=== PATIENT | male | born 1945 | race Hispanic/Latino ===

== ENCOUNTER 2020-03-12 05:12 | Emergency (ER) | payer MEDICARE ==
--- NOTE | 2020-03-12 05:14 | Emergency Department Report ---
HPI <NATY AVILA - Last Filed: 03/12/20 07:06> - HPI HPI: This is a 75-year-old male who presents to the emergency department via EMS from home with complaint of slurred speech, left-sided facial droop, and left-sided weakness that the patient noticed upon waking at about 4 AM this morning. The patient woke up and found himself to be incontinent of urine. He went to sleep around 10:30 PM last night. He has a past medical history of hypertension and hyperlipidemia and presents with elevated blood pressure with a systolic of about 200, per EMS. The patient is very hard of hearing. He has a surgical history of some small bowel resection from what sounds like an SBO. The patient did not take anything or receive anything for his symptoms prior to presentation today. He denies any tobacco or illicit drug use. <LINO ABRAMS - Last Filed: 03/14/20 06:08> - General Time Seen by Provider: 03/12/20 05:12 ED Review of Systems ROS: Stated complaint: CODE STROKE Other details as noted in HPI <NATY AVILA - Last Filed: 03/12/20 07:06> ROS: Stated complaint: CODE STROKE Other details as noted in HPI Comment: All other systems reviewed and negative Constitutional: denies: chills, fever Eyes: denies: eye pain, vision change ENT: denies: ear pain, throat pain Respiratory: denies: cough, shortness of breath Cardiovascular: denies: chest pain, palpitations Gastrointestinal: denies: abdominal pain, vomiting Genitourinary: denies: dysuria, discharge Musculoskeletal: denies: back pain, arthralgia Skin: denies: rash, lesions Neurological: weakness <LINO ABRAMS - Last Filed: 03/14/20 06:08> Physical Exam - Physical Exam Vital Signs: Vital Signs 03/12/20 03/12/20 05:12 06:09 Pulse Rate 89 Respiratory 21 17 Rate Blood Pressure 166/78 [Right] O2 Sat by Pulse 98 98 Oximetry <NATY AVILA - Last Filed: 03/12/20 07:06> - Physical Exam Physical Exam: GENERAL: Patient is ill-appearing. HENT: Normocephalic. Atraumatic. Patient has moist mucous membranes. EYES: There is a mild right-sided gaze preference. Pupils equal reactive to light bilaterally. NECK: Supple. Trachea is midline. CHEST/LUNGS: Clear to auscultation. There is no respiratory distress noted. HEART/CARDIOVASCULAR: Regular. There is no tachycardia. There is no murmur. ABDOMEN: Abdomen is soft, nontender. Patient has normal bowel sounds. There is no abdominal distention. SKIN: Skin is warm and dry. NEURO: The patient is awake, alert, and oriented. The patient is cooperative. Mild left-sided nasolabial fold paresis. There is left-sided hemiparesis. Normal speech. MUSCULOSKELETAL: There is no tenderness or deformity. <LINO ABRAMS - Last Filed: 03/14/20 06:08> ED Course Vital Signs 03/12/20 03/12/20 05:12 06:09 Pulse Rate 89 Respiratory 21 17 Rate Blood Pressure 166/78 [Right] O2 Sat by Pulse 98 98 Oximetry - Reevaluation(s) Reevaluation #1: 03/12/20 06:[address] Abrams. Spoke with teleneurologist who states patient appears to have large vessel occlusion on CTA. He reports that he has contacted [place] transfer line to speak with their interventional neurologist. We also gave him the number for the [place] stroke pager. Reevaluation #2: 03/12/20 06:[address] Morse, interventionalist at [facility]. Will be excepting the patient. Prefers patient be flown to [place]. Working on transport at this time. Reevaluation #3: 03/12/20 07:06 Helicopter unable to fly until 9 AM. Ground transport en route. <NATY AVILA - Last Filed: 03/12/20 07:06> - Consultations Consultation #1: 03/12/20 05:46 The patient was seen by the telemedicine neurologist, Dr. Maharaj, who agrees that the patient does not appear to be a TPA candidate as he woke up with the symptoms, but it is concerning for a large vessel occlusion. CT angiography of the head and neck has been ordered and is being performed now. <LINO ABRAMS - Last Filed: 03/14/20 06:08> ED Medical Decision Making - Lab Data Result diagrams: 03/12/20 05:55 03/12/20 05:55 <NATY AVILA. - Last Filed: 03/12/20 07:06> - Lab Data Result diagrams: 03/12/20 05:55 03/12/20 05:55 Lab Results 03/12/20 03/12/20 03/12/20 Range/Units 05:55 05:55 05:55 WBC 5.9 (4.5-11.0) K/mm3 RBC 4.64 (3.65-5.03) M/mm3 Hgb 12.8 (11.8-15.2) gm/dl Hct 39.0 (35.5-45.6) % MCV 84 (84-94) fl MCH 28 (28-32) pg MCHC 33 (32-34) % RDW 14.9 (13.2-15.2) % Plt Count 172 (140-440) K/mm3 Lymph % (Auto) 22.9 (13.4-35.0) % [place] % (Auto) 5.6 (0.0-7.3) % Eos % (Auto) 1.7 (0.0-4.3) % Baso % (Auto) 0.5 (0.0-1.8) % Lymph # (Auto) 1.4 (1.2-5.4) K/mm3 [place] # (Auto) 0.3 (0.0-0.8) K/mm3 Eos # (Auto) 0.1 (0.0-0.4) K/mm3 Baso # (Auto) 0.0 (0.0-0.1) K/mm3 Seg Neutrophils % 69.3 (40.0-70.0) % Seg Neutrophils # 4.1 (1.8-7.7) K/mm3 PT 13.7 (12.2-14.9) Sec. INR 1.06 (0.87-1.13) APTT 29.7 (24.2-36.6) Sec. Thrombin Time 18.7 (15.1-19.6) Sec. Sodium 138 (137-145) mmol/L Potassium 4.3 (3.6-5.0) mmol/L Chloride 106.4 (98-107) mmol/L Carbon Dioxide 24 (22-30) mmol/L Anion Gap 12 mmol/L BUN 17 (9-20) mg/dL Creatinine 1.1 (0.8-1.3) mg/dL Estimated GFR > 60 ml/min BUN/Creatinine Ratio 15 % Glucose 141 H (75-100) mg/dL POC Glucose (70-105) mg/dL Calcium 8.1 L (8.4-10.2) mg/dL Total Bilirubin 0.30 (0.1-1.2) mg/dL AST 14 (5-40) units/L ALT 9 (7-56) units/L Alkaline Phosphatase 74 (35-129) units/L Total Creatine Kinase 85 (55-170) units/L CK-MB (CK-2) 2.7 (0.0-4.0) ng/mL CK-MB (CK-2) Rel Index 3.1 (0-4) Troponin T < 0.010 (0.00-0.029) ng/mL Total Protein 5.4 L (6.3-8.2) g/dL Albumin 3.3 L (3.9-5) g/dL Albumin/Globulin Ratio 1.6 % Urine Color (Yellow) Urine Turbidity (Clear) Urine pH (5.0-7.0) Ur Specific [place] (1.003-1.030) Urine Protein (Negative) mg/dL Urine Glucose (UA) (Negative) mg/dL Urine Ketones (Negative) mg/dL Urine Blood (Negative) Urine Nitrite (Negative) Urine Bilirubin (Negative) Urine Urobilinogen (<2.0) mg/dL Ur Leukocyte Esterase (Negative) Urine WBC (Auto) (0.0-6.0) /HPF Urine RBC (Auto) (0.0-6.0) /HPF Urine Opiates Screen Urine Methadone Screen Ur Barbiturates Screen Ur Phencyclidine Scrn Ur Amphetamines Screen U Benzodiazepines Scrn Urine Cocaine Screen U Marijuana (THC) Screen Drugs of Abuse Note Plasma/Serum Alcohol (0-0.07) % 03/12/20 03/12/20 03/12/20 Range/Units 05:55 06:32 06:52 WBC (4.5-11.0) K/mm3 RBC (3.65-5.03) M/mm3 Hgb (11.8-15.2) gm/dl Hct (35.5-45.6) % MCV (84-94) fl MCH (28-32) pg MCHC (32-34) % RDW (13.2-15.2) % Plt Count (140-440) K/mm3 Lymph % (Auto) (13.4-35.0) % [place] % (Auto) (0.0-7.3) % Eos % (Auto) (0.0-4.3) % Baso % (Auto) (0.0-1.8) % Lymph # (Auto) (1.2-5.4) K/mm3 [place] # (Auto) (0.0-0.8) K/mm3 Eos # (Auto) (0.0-0.4) K/mm3 Baso # (Auto) (0.0-0.1) K/mm3 Seg Neutrophils % (40.0-70.0) % Seg Neutrophils # (1.8-7.7) K/mm3 PT (12.2-14.9) Sec. INR (0.87-1.13) APTT (24.2-36.6) Sec. Thrombin Time (15.1-19.6) Sec. Sodium (137-145) mmol/L Potassium (3.6-5.0) mmol/L Chloride (98-107) mmol/L Carbon Dioxide (22-30) mmol/L Anion Gap mmol/L BUN (9-20) mg/dL Creatinine (0.8-1.3) mg/dL Estimated GFR ml/min BUN/Creatinine Ratio % Glucose (75-100) mg/dL POC Glucose 115 H (70-105) mg/dL Calcium (8.4-10.2) mg/dL Total Bilirubin (0.1-1.2) mg/dL AST (5-40) units/L ALT (7-56) units/L Alkaline Phosphatase (35-129) units/L Total Creatine Kinase (55-170) units/L CK-MB (CK-2) (0.0-4.0) ng/mL CK-MB (CK-2) Rel Index (0-4) Troponin T (0.00-0.029) ng/mL Total Protein (6.3-8.2) g/dL Albumin (3.9-5) g/dL Albumin/Globulin Ratio % Urine Color Straw (Yellow) Urine Turbidity Clear (Clear) Urine pH 7.0 (5.0-7.0) Ur Specific [place] 1.033 H (1.003-1.030) Urine Protein <15 mg/dl (Negative) mg/dL Urine Glucose (UA) Neg (Negative) mg/dL Urine Ketones Neg (Negative) mg/dL Urine Blood Neg (Negative) Urine Nitrite Neg (Negative) Urine Bilirubin Neg (Negative) Urine Urobilinogen < 2.0 (<2.0) mg/dL Ur Leukocyte Esterase Neg (Negative) Urine WBC (Auto) < 1.0 (0.0-6.0) /HPF Urine RBC (Auto) 1.0 (0.0-6.0) /HPF Urine Opiates Screen Urine Methadone Screen Ur Barbiturates Screen Ur Phencyclidine Scrn Ur Amphetamines Screen U Benzodiazepines Scrn Urine Cocaine Screen U Marijuana (THC) Screen Drugs of Abuse Note Plasma/Serum Alcohol < 0.01 (0-0.07) % 03/12/20 Range/Units 06:52 WBC (4.5-11.0) K/mm3 RBC (3.65-5.03) M/mm3 Hgb (11.8-15.2) gm/dl Hct (35.5-45.6) % MCV (84-94) fl MCH (28-32) pg MCHC (32-34) % RDW (13.2-15.2) % Plt Count (140-440) K/mm3 Lymph % (Auto) (13.4-35.0) % [place] % (Auto) (0.0-7.3) % Eos % (Auto) (0.0-4.3) % Baso % (Auto) (0.0-1.8) % Lymph # (Auto) (1.2-5.4) K/mm3 [place] # (Auto) (0.0-0.8) K/mm3 Eos # (Auto) (0.0-0.4) K/mm3 Baso # (Auto) (0.0-0.1) K/mm3 Seg Neutrophils % (40.0-70.0) % Seg Neutrophils # (1.8-7.7) K/mm3 PT (12.2-14.9) Sec. INR (0.87-1.13) APTT (24.2-36.6) Sec. Thrombin Time (15.1-19.6) Sec. Sodium (137-145) mmol/L Potassium (3.6-5.0) mmol/L Chloride (98-107) mmol/L Carbon Dioxide (22-30) mmol/L Anion Gap mmol/L BUN (9-20) mg/dL Creatinine (0.8-1.3) mg/dL Estimated GFR ml/min BUN/Creatinine Ratio % Glucose (75-100) mg/dL POC Glucose (70-105) mg/dL Calcium (8.4-10.2) mg/dL Total Bilirubin (0.1-1.2) mg/dL AST (5-40) units/L ALT (7-56) units/L Alkaline Phosphatase (35-129) units/L Total Creatine Kinase (55-170) units/L CK-MB (CK-2) (0.0-4.0) ng/mL CK-MB (CK-2) Rel Index (0-4) Troponin T (0.00-0.029) ng/mL Total Protein (6.3-8.2) g/dL Albumin (3.9-5) g/dL Albumin/Globulin Ratio % Urine Color (Yellow) Urine Turbidity (Clear) Urine pH (5.0-7.0) Ur Specific [place] (1.003-1.030) Urine Protein (Negative) mg/dL Urine Glucose (UA) (Negative) mg/dL Urine Ketones (Negative) mg/dL Urine Blood (Negative) Urine Nitrite (Negative) Urine Bilirubin (Negative) Urine Urobilinogen (<2.0) mg/dL Ur Leukocyte Esterase (Negative) Urine WBC (Auto) (0.0-6.0) /HPF Urine RBC (Auto) (0.0-6.0) /HPF Urine Opiates Screen Presumptive negative Urine Methadone Screen Presumptive negative Ur Barbiturates Screen Presumptive negative Ur Phencyclidine Scrn Presumptive negative Ur Amphetamines Screen Presumptive negative U Benzodiazepines Scrn Presumptive negative Urine Cocaine Screen Presumptive negative U Marijuana (THC) Screen Presumptive negative Drugs of Abuse Note Disclamer Plasma/Serum Alcohol (0-0.07) % - EKG Data -: EKG Interpreted by Pa EKG shows normal: sinus rhythm, axis, intervals, QRS complexes, ST-T waves Rate: normal - EKG Data When compared to previous EKG there are: previous EKG unavailable Interpretation: normal EKG - Radiology Data Radiology results: report reviewed CT angio neck INDICATION / CLINICAL INFORMATION: 75 years Male; Post Code Stroke Protocol, possible C.V.A.. TECHNIQUE: Thin cut axial images obtained through the head during IV bolus contrast administration. Sagittal, coronal, and 3 plane MIP reconstructions performed by the technologist. NASCET type criteria used evaluate stenoses. All CT scans at this location are performed using CT dose reduction for ALARA by means of automated exposure control. COMPARISON: None available. FINDINGS: CAROTID ARTERIES: There is occlusion of the right cervical carotid artery at the origin. There is no significant stenosis of the right common carotid artery. There is atherosclerotic plaque involving proximal left ICA with approximately 50% stenosis just distal to the left carotid bulb. There is no further significant narrowing involving the more distal left ICA or left common carotid artery. VERTEBRAL ARTERIES: There is mild narrowing of the origin of the right vertebral artery with mild poststenotic dilatation. The proximal left vertebral artery is obscured by the beam hardening artifact. However, there appears be mild to moderate to narrowing of the origin. Otherwise, the cervical vertebral arteries are unremarkable. ARCH: There is mild atherosclerotic calcification involving aortic arch. However, there is no significant stenosis of the arch vessels. ADDITIONAL FINDINGS: Remainder of the surrounding soft tissues are grossly normal. 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 There is atherosclerotic plaque involving the proximal left ICA with 50% stenosis just distal to the left carotid bulb. There is mild to moderate narrowing of the origins of the vertebral arteries bilaterally. CT angio head INDICATION / CLINICAL INFORMATION: 75 years Male; Post Code Stroke Protocol, possible C.V.A.. TECHNIQUE: Thin cut axial images obtained through the head during IV bolus contrast administration. Sagittal, coronal, and 3 plane MIP reconstructions performed by the technologist. NASCET type criteria used evaluate stenoses. Automated exposure control utilized for radiation reduction purposes. COMPARISON: None available. FINDINGS: INTERNAL CAROTID ARTERIES: On the CTA neck, there was note of occlusion of the right ICA at the origin. Faint contrast is seen within the intracranial segments of the right ICA compatible with component of collateral or possibly retrograde flow. There is no significant stenosis involving left ICA by NASCET criteria. VERTEBROBASILAR SYSTEM: No significant narrowing appreciated. CEREBRAL ARTERIES: The findings are compatible with thrombus within the M1 segment of the right MCA approximately 7 mm from the origin with occlusion. However, there is collateral flow noted within the more distal insular branches though the flow is decreased compared to the left at. Otherwise, the cerebral branches appear to demonstrate appropriate caliber. ANEURYSM: None identified. ADDITIONAL FINDINGS: The dural venous sinuses opacify with contrast. IMPRESSION: There is occlusion of the M1 segment of the right MCA with some collateral flow within the insular branches as detailed above. In correlation with the CTA neck, there is note of occlusion of the right ICA at the origin with some collateral flow within the intracranial segments as described. - Medical Decision Making Patient presents as a code stroke. He appears to have left-sided hemiparesis, a mild right-sided gaze preference, and a mild left-sided facial droop. CT scan of the head without contrast does not show any hemorrhage or large vessel occlusion. He was seen by telemedicine neurology who has ordered a CT angiography of the head and neck that has been performed but has not yet resulted. EKG did not show any morphology consistent with ST elevation myocardial infarction or any dysrhythmia. Initial vital signs in the emergency department have been reassuring including being afebrile. The patient has been signed out to my colleague, Dr Avila, to follow the CT angiography results and the lab results, and assist with disposition. <LINO ABRAMS - Last Filed: 03/14/20 06:08> Critical care attestation.: If time is entered above; I have spent that time in minutes in the direct care of this critically ill patient, excluding procedure time. <NATY AVILA - Last Filed: 03/12/20 07:06> Critical Care Time: Yes Critical care time in (mins) excluding proc time.: 35 Critical care attestation.: If time is entered above; I have spent that time in minutes in the direct care of this critically ill patient, excluding procedure time. Critical care time was spent on this patient in doing his initial evaluation, multiple reevaluations, ordering and interpretation of labs and imaging, discussion with the telemedicine neurologist. Critical Care Time: 35 minutes <LINO ABRAMS - Last Filed: 03/14/20 06:08> ED Disposition Is pt being admited?: No Time of Disposition: 06:56 <NATY AVILA - Last Filed: 03/12/20 07:06> Is pt being admited?: No <SHEAR,LINO S - Last Filed: 03/14/20 06:08> Clinical Impression: CVA (cerebral vascular accident) Qualifiers: CVA mechanism: occlusion Precerebral and cerebral artery: middle cerebral art anita Laterality of affected vessel: right Qualified Code(s): I63.511 - Cerebral infarction due to unspecified occlusion or stenosis of right middle cerebral artery Hypertension Qualifiers: Hypertension type: essential hypertension Qualified Code(s): I10 - Essential (primary) hypertension Disposition: DC/TX-70 ANOTHER TYPE HLTHCARE Condition: Serious Instructions: Hypertension (ED)
--- NOTE | 2020-03-12 05:58 | Cat Scan Report ---
CT head/brain wo con INDICATION / CLINICAL INFORMATION: CODE STROKE PROTOCOL!!! Stroke-Like symptoms. Left hemiparesis TECHNIQUE: Axial CT imaging of the brain was obtained without contrast. Coronal and sagittal reformatted imaging obtained and reviewed. All CT scans at this location are performed using CT dose reduction for ALAR A by means of automated exposure control. COMPARISON: None available. FINDINGS: No intracranial hemorrhage, mass, or midline shift is noted. No extra-axial fluid collection or sugge stion for acute territorial infarction. There is small old appearing stroke in the right posterior pa rietal lobe. No definite signs of acute ischemia are identified. Campbell-white differentiation is mainta ined. No cerebral sulci effacement. Ventricular system and basilar cisterns appear unremarkable. Mild age-appropriate atrophy is noted. Visualized paranasal sinuses and mastoid air cells are well aerated and clear. No calvarial abnormali ty. IMPRESSION: 1. No definite acute area of ischemia to account for patient's significant neurological deficit of le ft hemiparesis. 2. Small area of encephalomalacia in the right posterior parietal lobe. The appearance is most sugges tive for old CVA. This is a code stroke protocol. The above report was telephoned to Dr. Abrams at 0446 hours [facility]ICAL RE[facility]ABILITATION LIAISON. Signer Name: Zakiya Garcia MD Signed: 03/12/2020 5:53 AM Workstation Name: [id number]
[2020-03-12] MEDS ORDERED: ASPIRIN 81 MG TAB CHEW PO ONE (06:05)
[2020-03-12 06:25] LABS: Basophils % (Auto) 0.5 % (0.0-1.8); Eosinophils # (Auto) 0.1 K/mm3 (0.0-0.4); Eosinophils % (Auto) 1.7 % (0.0-4.3); Hemoglobin 12.8 gm/dl (11.8-15.2); Lymphocytes # (Auto) 1.4 K/mm3 (1.2-5.4); Lymphocytes % (Auto) 22.9 % (13.4-35.0); Mean Corpuscular HGB Conc 33 % (32-34); Mean Corpuscular Volume 84 fl (84-94); Monocytes # (Auto) 0.3 K/mm3 (0.0-0.8); Monocytes % (Auto) 5.6 % (0.0-7.3); Platelet Count 172 K/mm3 (140-440); Red Blood Count 4.64 M/mm3 (3.65-5.03); Red Cell Distribution Width 14.9 % (13.2-15.2)
--- NOTE | 2020-03-12 06:32 | Cat Scan Report ---
CT angio neck INDICATION / CLINICAL INFORMATION: 75 years Male; Post Code Stroke Protocol, possible C.V.A.. TECHNIQUE: Thin cut axial images obtained through the head during IV bolus contrast administration. S agittal, coronal, and 3 plane MIP reconstructions performed by the technologist. NASCET type criteria used evaluate stenoses. All CT scans at this location are performed using CT dose reduction for ALAR A by means of automated exposure control. COMPARISON: None available. FINDINGS: CAROTID ARTERIES: There is occlusion of the right cervical carotid artery at the origin. There is no significant stenosis of the right common carotid artery. There is atherosclerotic plaque involving proximal left ICA with approximately 50% stenosis just dist al to the left carotid bulb. There is no further significant narrowing involving the more distal left ICA or left common carotid artery. VERTEBRAL ARTERIES: There is mild narrowing of the origin of the right vertebral artery with mild pos tstenotic dilatation. The proximal left vertebral artery is obscured by the beam hardening artifact. However, there appears be mild to moderate to narrowing of the origin. Otherwise, the cervical verteb ral arteries are unremarkable. ARCH: There is mild atherosclerotic calcification involving aortic arch. However, there is no signifi cant stenosis of the arch vessels. ADDITIONAL FINDINGS: Remainder of the surrounding soft tissues are grossly normal. 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 There is atherosclerotic plaque involving the proximal left ICA with 50% stenosis just distal to the left carotid bulb. There is mild to moderate narrowing of the origins of the vertebral arteries bilaterally. Signer Name: Ricky Celaya MD Signed: 03/12/2020 6:28 AM Workstation Name: [id number]
[2020-03-12 06:34] LABS: INR 1.06 (0.87-1.13); Partial Thromboplastin Time 29.7 Sec. (24.2-36.6); Thrombin Time 18.7 Sec. (15.1-19.6)
--- NOTE | 2020-03-12 06:38 | Cat Scan Report ---
CT angio head INDICATION / CLINICAL INFORMATION: 75 years Male; Post Code Stroke Protocol, possible C.V.A.. TECHNIQUE: Thin cut axial images obtained through the head during IV bolus contrast administration. S agittal, coronal, and 3 plane MIP reconstructions performed by the technologist. NASCET type criteria used evaluate stenoses. Automated exposure control utilized for radiation reduction purposes. COMPARISON: None available. FINDINGS: INTERNAL CAROTID ARTERIES: On the CTA neck, there was note of occlusion of the right ICA at the origi n. Faint contrast is seen within the intracranial segments of the right ICA compatible with component of collateral or possibly retrograde flow. There is no significant stenosis involving left ICA by NA SCET criteria. VERTEBROBASILAR SYSTEM: No significant narrowing appreciated. CEREBRAL ARTERIES: The findings are compatible with thrombus within the M1 segment of the right MCA a pproximately 7 mm from the origin with occlusion. However, there is collateral flow noted within the more distal insular branches though the flow is decreased compared to the left at. Otherwise, the cer ebral branches appear to demonstrate appropriate caliber. ANEURYSM: None identified. ADDITIONAL FINDINGS: The dural venous sinuses opacify with contrast. IMPRESSION: There is occlusion of the M1 segment of the right MCA with some collateral flow within the insular br anches as detailed above. In correlation with the CTA neck, there is note of occlusion of the right ICA at the origin with some collateral flow within the intracranial segments as described. Signer Name: Ricky Celaya MD Signed: 03/12/2020 6:34 AM Workstation Name: [id number]
[2020-03-12 06:45] LABS: Creatine Kinase MB 2.7 ng/mL (0.0-4.0)
[2020-03-12 06:47] LABS: Alanine Aminotransferase 9 units/L (7-56); Albumin 3.3 g/dL (3.9-5); BUN/Creatinine Ratio 15; Blood Urea Nitrogen 17 mg/dL (9-20); Calcium 8.1 mg/dL (8.4-10.2); Hemolysis Index 7
--- NOTE | 2020-03-12 06:47 | Consultation ---
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 He has also left facial droop in ED and note to have decreased sensation on the left side. - CTA showed Rm1 and i spoke with CAMACHO at [facility] and accepted for transfer for possible thrombectomy. - Permissive HTN and IV fluids - ASA - Stroke workup Metrics: Last Known Well: 03/11/2020 22:30:00 [facility] Notification Time: 03/12/2020 05:11:34 Arrival Time: 03/12/2020 05:00:00 Stamp Time: 03/12/2020 05:12:00 Time First Login Attempt: 03/12/2020 05:15:51 Symptoms: left weakness NIHSS Start Assessment Time: 03/12/2020 05:25:03 Patient is not a candidate for Alteplase/Activase. Patient was not deemed candidate for Alteplase/Activase thrombolytics because of Last Well Known Above 4.[address] head showed no acute hemorrhage or acute core infarct. CT head was reviewed. Clinical Presentation is Suggestive of Large Vessel Occlusive Disease, Recommendations are as Follows Advanced Imaging is Suggestive of Large Vessel Occlusion, Neurointerventional Specialist to be Consulted. Discussed with Neurointerventionalist on 03/12/2020 06:43:00 ED Physician notified of diagnostic impression and management plan on 03/12/2020 05:29:37 Our recommendations are outlined below. Recommendations: Activate Stroke Protocol Admission/Order Set Stroke/Telemetry Floor Neuro Checks Bedside Swallow Eval DVT Prophylaxis IV Fluids, Normal Saline Head of Bed 30 Degrees Euglycemia and Avoid Hyperthermia (PRN Acetaminophen) Antiplatelet Therapy Recommended Routine Consultation with Inhouse Neurology for Follow up Care Sign Out: Discussed with Emergency Department Provider History of Present Illness: Patient is a 75 year old Male. Patient was brought by EMS for symptoms of left weakness Patient is a 75 year old man who presented with EMS for left side weakness as he went to bed fine and when woke up this morning he noticed he can't move his left arm and also very weak left leg. He has also left facial droop in ED and note to have decreased sensation on the left side. Examination: BP(202/91), Pulse(90s), Blood Glucose(100s) 1A: Level of Consciousness - Alert; keenly responsive + 0 1B: Ask Month and Age - Both Questions Right + 0 1C: Blink Eyes & Squeeze Hands - Performs Both Tasks + 0 2: Test Horizontal Extraocular Movements - Partial Gaze Palsy: Can Be Overcome + 1 3: Test Visual Waite - Complete Hemianopia + 2 4: Test Facial Palsy (Use Grimace if Obtunded) - Minor paralysis (flat nasolabial fold, smile asymmetry) + 1 5A: Test Left Arm Motor Drift - No Movement + 4 5B: Test Right Arm Motor Drift - No Drift for 10 Seconds + 0 6A: Test Left Leg Motor Drift - No Effort Against [place] + 3 6B: Test Right Leg Motor Drift - No Drift for 5 Seconds + 0 7: Test Limb Ataxia (FNF/Heel-Powers) - No Ataxia + 0 8: Test Sensation - Mild-Moderate Loss: Less Sharp/More Dull + 1 9: Test Language/Aphasia - Normal; No aphasia + 0 10: Test Dysarthria - Normal + 0 11: Test Extinction/Inattention - No abnormality + 0 NIHSS Score: 12 Pre-Morbid Modified Ranking Scale: 1 Points = No significant disability despite symptoms; able to carry out all usual duties and activities Patient/Family was informed the Neurology Consult would happen via TeleHealth consult by way of interactive audio and video telecommunications and consented to receiving care in this manner. Due to the immediate potential for life-threatening deterioration due to underlying acute neurologic illness, I spent 40 minutes providing critical care. This time includes time for face to face visit via telemedicine, review of medical records, imaging studies and discussion of findings with providers, the patient and/or family. Dr Bashir Maharaj [facility] Case [id number] Physical Examination - Vital Signs Vital Signs: Vital Signs Temp Pulse Resp BP Pulse Ox 98.2 F 89 21 166/78 98 03/12/20 05:12 03/12/20 05:12 03/12/20 05:12 03/12/20 05:12 03/12/20 05:12 Results - Laboratory Findings CBC and BMP: 03/12/20 05:55 03/12/20 05:55 Abnormal Lab Findings: Abnormal Labs 03/12/20 06:32 POC Glucose 115 H
[2020-03-12 07:07] LABS: Bilirubin,Urine NEG (Negative); Blood,Urine NEG (Negative); Color,Urine Straw (Yellow); Protein,Urine <15 mg/dL mg/dL (Negative); Urobilinogen,Urine < 2.0 mg/dL (<2.0); WBC,Urine < 1.0 /HPF (0.0-6.0)
[2020-03-12 07:14] LABS: Amphetamine Screen,Urine PRESUMPTIVE NEGATIVE; Benzodiazepines Screen,Urine PRESUMPTIVE NEGATIVE; Cannabinoid Screen,Urine PRESUMPTIVE NEGATIVE; Cocaine Screen,Urine PRESUMPTIVE NEGATIVE; Methadone Screen,Urine PRESUMPTIVE NEGATIVE; Opiate Screen,Urine PRESUMPTIVE NEGATIVE
[2020-03-12 07:20] VITALS: BP 166/78
== END 2020-03-12 07:34 | disposition other institution (70) ==
LOC: ED 05:12
DX: I63.9 Cerebral infarction, unspecified (principal); R53.1 Weakness; R47.81 Slurred speech; I10 Essential (primary) hypertension
CPT/HCPCS: 36415; 70450; 70496; 70498; 80053; 80307; 81001; 82550; 82553; 82962; 84484; 85025; 85610; 85670; 85730; 93005; 99291; Q9967; 80320; G0480